=== PATIENT | female | born 1970 | race Caucasian/White ===

== ENCOUNTER → 2016-09-17 | Outpatient (CLI) | payer OTHER ==
[~2016-09-17] MED LIST: CAT S CLAW PO; FLC1T PO; HCA25SU PR; HYDR-34 PO; HYDR1TAB66 PO; IBUP-1773 PO; MSL400TEC PO; MULT-305 PO; OMEG1CAP51 PO; OMEP20CA6 PO; PRD10T PO; PRD20T PO; SMT80CT PO; SULF500T5 PO
--- NOTE | 2016-09-17 15:05 | Diagnostic Imaging Report ---
PROCEDURE: CT chest without contrast. TECHNIQUE: Multiple contiguous axial images were obtained through the chest without the use of intravenous contrast. INDICATION: Hemoptysis. History of pulmonary nodules. COMPARISON: 10/16/2014 and 07/10/2014 FINDINGS: Since the previous exam, there has been interval improved appearance to the previously described bilateral pulmonary micronodules. Subpleural micronodule within the anterior margins of the left upper lobe is stable in size at 6 mm, but is now barely perceptible and essentially represents faint groundglass density (image 12, series 2). Very faint 5 mm micronodules also seen more inferiorly, also within the left upper lobe (image 22, series 2). This is also improved compared to prior exam. On the right, there is a 2-3 mm subpleural micronodule within the posterior and lateral margins of the right lower lobe. This is stable compared to prior exam (image 32, series 2 compared to image 31, series 2). No residual abnormality seen within the posterior margins of the right upper lobe to correspond to the micronodular density described on the prior exam (image 11, series 2 on prior study). There is no focal consolidation, pleural effusion, nor pneumothorax. No distinct central endobronchial obstructive lesions are identified. Cardiomediastinal structures show normal heart size. There is small pericardial effusion; likely within physiologic limits. A few subcentimeter mediastinal lymph nodes are identified. No pathologically enlarged mediastinal, hilar, nor axillary adenopathy is identified. Bony structures show no acute abnormalities. No lytic or blastic bony lesions are seen. Included portions of the upper abdomen are unremarkable as well. IMPRESSION: 1. Significant improved appearance to the previously described pulmonary micronodules. One-year followup is recommended to ensure ongoing stability. 2. No adverse interval change or otherwise acute appearing cardiopulmonary process. Dictated by: Dictated on workstation # [id number]
== END ==
LOC: RAD 11:41
PROVIDERS: ATTEND Nurse Practitioner Family
DX: R91.8 Other nonspecific abnormal finding of lung field (principal)
CPT/HCPCS: 71250